=== PATIENT | female | born 1975 | race Caucasian/White ===

== ENCOUNTER 2020-08-04 02:20 | Emergency (ER) | payer OTHER ==
[2020-08-04 02:36] VITALS: BP 144/90; PULSE 62; RESP 18; TEMP 97.8
--- NOTE | 2020-08-04 02:50 | XR ---
EXAM: XR Chest, 2 Views CLINICAL HISTORY: ITS.REASON XR Reason: cough TECHNIQUE: Frontal and lateral views of the chest. COMPARISON: No relevant prior studies available. FINDINGS: Lungs: Unremarkable. Pleural space: Unremarkable. Heart: Unremarkable. Mediastinum: Unremarkable. Bones/joints: Unremarkable. IMPRESSION: Normal chest x-rays.
--- NOTE | 2020-08-04 02:59 | ED ---
SOB HPI - General Chief Complaint: Shortness of Breath Stated Complaint: COVID+, SOB Time Seen by Provider: 08/04/20 02:58 Source: patient Mode of arrival: ambulatory Limitations: no limitations - History of Present Illness Initial Comments: This patient is a 45-year-old woman who presents to be evaluated for shortness of breath. Patient states she had been in her usual state of health, until a couple of days ago then she had a [place] virus exposure. She went saw her physician in the morning and had testing despite being asymptomatic. She states that she did test positive. Tonight she was doing a lot of things at home and she felt short of breath. She phoned her physician who recommended she be seen here for evaluation. Patient states that his symptoms she stopped doing all that activity at home or shortness of breath had resolved and she was not sure if it was anxiety or not. She is currently asymptomatic here MD Complaint: shortness of breath -: hour(s) Severity: mild Consistency: now resolved Improves With: nothing Worsens With: exertion Associated Symptoms: denies other symptoms - Related Data Allergies Allergy/AdvReac Type Severity Reaction Status Date / Time Penicillins Allergy Anaphylaxis Verified 08/04/20 02:37 Review of Systems ROS Statement: Those systems with pertinent positive or pertinent negative responses have been documented in the HPI. ROS Other: All systems not noted in ROS Statement are negative. Constitutional: Denies: fever, chills ENT: Denies: throat pain, congestion Respiratory: Reports: dyspnea. Denies: cough, wheezes, hemoptysis Cardiovascular: Denies: chest pain, palpitations, orthopnea, edema, syncope Gastrointestinal: Denies: abdominal pain, vomiting, diarrhea Musculoskeletal: Denies: myalgia Neurological: Denies: headache Past Medical History Past Medical History: No Reported History History of Any Multi-Drug Resistant Organisms: None Reported Past Surgical History: Tubal Ligation Past Psychological History: No Psychological Hx Reported Smoking Status: Current every day smoker Past Alcohol Use History: Rare Past Drug Use History: None Reported General Exam Limitations: no limitations General appearance: alert, in no apparent distress, anxious Head exam: Present: atraumatic, normocephalic Eye exam: Present: normal appearance. Absent: scleral icterus, conjunctival injection Respiratory exam: Present: normal lung sounds bilaterally. Absent: respiratory distress, wheezes, rales, rhonchi, stridor Cardiovascular Exam: Present: regular rate, normal rhythm, normal heart sounds. Absent: systolic murmur, diastolic murmur, rubs, gallop Extremities exam: Present: normal inspection, normal capillary refill. Absent: pedal edema Back exam: Present: normal inspection Neurological exam: Present: alert Skin exam: Present: warm, dry, intact, normal color. Absent: rash Course Vital Signs 08/04/20 02:31 Temperature 97.8 F Pulse Rate 62 Respiratory 18 Rate Blood Pressure 144/90 O2 Sat by Pulse 100 Oximetry Disposition Clinical Impression: COVID-19 Disposition: HOME SELF-CARE Condition: Good Instructions (If sedation given, give patient instructions): Coronavirus Disease 2019 (COVID-19) Is patient prescribed a controlled substance at d/c from ED?: No Referrals: Yusef Hylton MD [Primary Care Provider] - 1-2 days
== END 2020-08-04 03:09 | disposition home or self-care (01) ==
LOC: EC 02:20
DX: U07.1 COVID-19 (principal); F17.200 Nicotine dependence, unspecified, uncomplicated; Z88.0 Allergy status to penicillin
CPT/HCPCS: 71046; 99284